=== PATIENT | male | born 1965 | race Two or more races ===

== ENCOUNTER 2020-08-05 16:48 | Emergency (ER) | payer MEDICAID, OTHER ==
[~2020-08-05] VITALS: Ht 167.6 cm; Wt 82.6 kg
[2020-08-05 16:58] VITALS: BP 128/84
[2020-08-05 19:27] LABS: Hematocrit 46.8 % (41.0-53.0); Hemoglobin 15.6 g/dL (13.5-17.5); Mean Corpuscular Hemoglobin 27.8 pg (28.0-32.0); Mean Corpuscular Hgb Conc. 33.2 g/dL (32.0-36.0); Mean Corpuscular Volume 83.6 fL (80.0-100.0); Platelet Count (auto) 267 10^3/uL (140-450); Red Cell Distribution Width 14.2 % (11.8-14.3); White Blood Cell 4.5 10^3/uL (4.4-10.8)
[2020-08-05 19:44] LABS: Band Neutrophils % (manual) 0; Basophils % (manual) 0 (0.0-2.0); Blast Cells 0; Metamyelocytes % 0; Myelocytes % 0; Promyelocytes % 0; Reactive Lymphocytes 0
[2020-08-05 19:49] LABS: Acetaminophen < 2.0 ug/mL (10-30); Albumin 3.7 g/dL (3.4-5.0); Calcium 8.7 mg/dL (8.5-10.1); Potassium 4.3 mmol/L (3.5-5.1); Salicylate < 1.7 mg/dL (2.8-20.0)
[2020-08-05 19:52] LABS: Bilirubin, Total 0.6 mg/dL (0.2-1.0); Total Protein 7.1 g/dL (6.4-8.2)
[2020-08-05 19:52] LABS: Urine Bacteria NONE SEEN /hpf (None Seen); Urine Blood Negative /uL (Negative); Urine Mucus FEW (None Seen); Urine Specific Gravity 1.025 (1.001-1.035); Urine WBC <1 /hpf (0 - 3)
[2020-08-05 20:02] LABS: Eosinophils % (manual) 1 (0-7); Lymphocytes % (manual) 37 (10.0-50.0); Monocytes % (manual) 19 (0-12)
[2020-08-05 20:04] LABS: Alcohol, Urine < 3.0 mg/dL (0-10); Amphetamine Screen, Urine NEGATIVE (NEGATIVE); Barbiturate Scree,Urine NEGATIVE (NEGATIVE); Benzodiazephine Screen, Urine NEGATIVE (NEGATIVE); Cocaine Screen, Urine NEGATIVE (NEGATIVE); Phencyclidine Screen, Urine NEGATIVE (NEGATIVE)
[2020-08-05 20:12] LABS: Cannabinoid Screen, Urine POSITIVE (NEGATIVE); Opiate Scree,Urine POSITIVE (NEGATIVE)
[2020-08-07 05:07] LABS: RPR Non Reactive (Non Reactive)
== END 2020-08-06 05:55 | disposition home or self-care (01) ==
LOC: ER 16:48
DX: F20.0 Paranoid schizophrenia (principal)
CPT/HCPCS: 36415; 70450; 80053; 80307; 80320; 80329; 81001; 85007; 85027; 86592